=== PATIENT | male | born 1990 | race Caucasian/White ===

== ENCOUNTER → 2019-02-20 | Outpatient (CLI) | payer OTHER ==
--- NOTE | 2019-02-21 14:20 | ECHO ---
DATE OF PROCEDURE: 02/20/2019 DATE OF : 1990 AGE: 28 GENDER: Male HEIGHT: 74 inches WEIGHT: 132 pounds BODY SURFACE AREA: 1.82 m2 OUTPATIENT REFERRING PHYSICIAN: Dr. Magali Denis INDICATION: Murmur. MEASUREMENTS: 2-D Measurements: RV: 3.0 cm LV: 4.5 cm Septum: 0.8 cm Posterior wall: 0.8 cm Aortic root: 3.3 cm LA: 2.6 cm LVEF: 65% Doppler Measurements: AV: 0.93 m/s LVOT: 0.92 m/s LVOT diameter: 2.2 cm MV: E: 88, A: 42, EA ratio: 2 Early mitral deceleration time: 246 ms E prime: 10.6, A prime: 7, E/E prime ratio: 8.1 PV: 0.8 m/s Pulmonary artery acceleration time: 148 ms RVSP: 17 mmHg IVC: 1.8 cm COMMENTS: Normal sinus rhythm without intraventricular conduction disturbance. M-mode and two-dimensional echocardiography was performed with pulsed, continuous wave, color flow and tissue Doppler studies. Normal left ventricular size, wall thickness and wall motion. Normal left atrial size and Doppler assessment of LV diastolic function. Normal estimated mean left atrial pressure. Normal right heart chamber sizes and motion and estimated pulmonary arterial pressure. Normal IVC size and collapse against an elevated central venous pressure. Normal appearing and functioning valvular structures. No apparent intracardiac shunt. No apparent intracardiac mass or pericardial effusion. MTDD
== END ==
LOC: M CARPUL 08:09
DX: R01.1 Cardiac murmur, unspecified (principal)

== ENCOUNTER → 2019-07-27 | Outpatient (CLI) | payer MEDICAID, OTHER ==
--- NOTE | 2019-07-27 15:25 | REP ---
bilateral hips: AP and frog-leg views of both hips are performed. There is no acute fracture or dislocation. There is mild acetabular spurring. A somewhat linear calcification is seen superior to the right femoral neck probably tendinous in nature. Left hip joint appears normal. No other significant findings are seen. IMPRESSION: No evidence of fracture. There is mild right acetabular spurring and mild tendinous calcification is noted superior to the right femoral neck. Left hip joint is unremarkable. Electronically Signed by Shaka Sterling MD 07/29/2019 09:52 A
--- NOTE | 2019-07-27 15:27 | REP ---
BILATERAL KNEE SERIES: Five views of each knee performed. No acute fracture or dislocation is seen. Joint spaces are unremarkable in appearance. I do not see a significant joint effusion on either side. IMPRESSION: Negative Bilateral knee series. Electronically Signed by Shaka Sterling MD 07/29/2019 09:52 A
== END ==
LOC: M RAD 09:41
PROVIDERS: ATTEND Family Medicine
DX: M25.751 Osteophyte, right hip (principal)

== ENCOUNTER → 2019-08-26 | Outpatient (REF) | payer OTHER, MEDICAID | LOC: M LAB REF 17:29 | PROVIDERS: ATTEND Surgery | DX: D23.5 Other benign neoplasm of skin of trunk (principal) ==

== ENCOUNTER → 2019-09-04 | Outpatient (REF) | payer OTHER, MEDICAID | LOC: M SMT 13:29 | PROVIDERS: ATTEND Urology | DX: Z30.2 Encounter for sterilization (principal) ==

== ENCOUNTER → 2019-09-30 | Outpatient (REF) | payer OTHER, MEDICAID | LOC: M LAB REF 14:53 | PROVIDERS: ATTEND Surgery | DX: D22.5 Melanocytic nevi of trunk (principal) ==

== ENCOUNTER → 2019-10-26 | Outpatient (CLI) | payer MEDICAID ==
[2019-10-26 11:37] LABS: BASO % 0.2 % (0.0-1.0); EOS # 0.1 10^3/uL (0.0-0.5); EOS % 0.5 % (0.0-3.0); HEMATOCRIT 47.8 % (42.0-52.0); HEMOGLOBIN 15.9 g/dl (13.5-17.5); LYMPH # 1.6 10^3/uL (1.5-5.0); LYMPH % 16.4 % (24.0-44.0); MEAN CORPUSCULAR HEMOGLOBIN 30.9 pg (27.0-33.0); MEAN CORPUSCULAR HGB CONC 33.3 g/dl (32.0-36.5); MONO # 0.6 10^3/uL (0.0-0.8); MONO % 5.7 % (0.0-5.0); NEUTROPHILS # 7.5 10^3/uL (1.5-8.5); NEUTROPHILS % 76.8 % (36.0-66.0); PLATELET COUNT, AUTOMATED 202 10^3/uL (150-450); RED BLOOD COUNT 5.14 10^6/uL (4.30-6.10); WHITE BLOOD COUNT 9.7 10^3/uL (4.0-10.0)
[2019-10-26 12:07] LABS: BLOOD UREA NITROGEN 15 MG/DL (7-18); CALCIUM LEVEL 8.9 MG/DL (8.5-10.1); CARBON DIOXIDE LEVEL 28 MEQ/L (21-32); CHLORIDE LEVEL 109 MEQ/L (98-107); CREATININE FOR GFR 1.15 MG/DL (0.70-1.30); GLOMERULAR FILTRATION RATE > 60.0 (>60); GLUCOSE, FASTING 70 MG/DL (70-100); POTASSIUM SERUM 4.4 MEQ/L (3.5-5.1); SODIUM LEVEL 140 MEQ/L (136-145)
== END ==
LOC: M LAB 10:45
PROVIDERS: ATTEND Orthopaedic Surgery
DX: Z01.818 Encounter for other preprocedural examination (principal); M24.151 Other articular cartilage disorders, right hip; M25.559 Pain in unspecified hip

== ENCOUNTER → 2019-11-09 | Outpatient (REF) | payer MEDICAID ==
[2019-11-09 13:25] LABS: SEMEN APPEARANCE OPAQUE (OPAQUE); SEMEN VISCOSITY LIQUID (LIQUID); WBC CONCENTRATION <=1 M/ml (<=1 M/ml)
== END ==
LOC: M SMT 11:54
PROVIDERS: ATTEND Urology
DX: Z98.52 Vasectomy status (principal)

== ENCOUNTER 2024-04-28 20:30 | Emergency (ER) | payer OTHER ==
[~2024-04-28] VITALS: Ht 190.5 cm; Wt 56.7 kg
[~2024-04-28 20:30] MED LIST: LEVO50TA5 PO
[2024-04-28] MEDS ORDERED: NORV5TAB PO (20:45)
[2024-04-28 20:59] LABS: BASO % 0.4 % (0.0-1.0); EOS # 0.1 10^3/uL (0.0-0.5); EOS % 0.7 % (0.0-3.0); HEMATOCRIT 43.2 % (42.0-52.0); HEMOGLOBIN 14.8 g/dl (13.5-17.5); LYMPH # 2.5 10^3/uL (1.5-5.0); LYMPH % 23.5 % (24.0-44.0); MEAN CORPUSCULAR HEMOGLOBIN 31.4 pg (27.0-33.0); MEAN CORPUSCULAR HGB CONC 34.3 g/dl (32.0-36.5); MEAN CORPUSCULAR VOLUME 91.7 fl (80.0-96.0); MONO # 0.9 10^3/uL (0.0-0.8); MONO % 8.8 % (2.0-8.0); NEUTROPHILS # 7.1 10^3/uL (1.5-8.5); NEUTROPHILS % 66.3 % (36.0-66.0); PLATELET COUNT, AUTOMATED 244 10^3/uL (150-450); RED BLOOD COUNT 4.71 10^6/uL (4.30-6.10); WHITE BLOOD COUNT 10.7 10^3/uL (4.0-10.0)
[2024-04-28 21:35] LABS: CK-MB VALUE MASS 1.3 NG/ML (<3.6)
[2024-04-28 21:37] LABS: ALBUMIN 4.5 G/DL (3.2-5.2); ALKALINE PHOSPHATASE 83 U/L (46-116); ALT/SGPT 35 U/L (7.0-40); AST/SGOT 23 U/L (<34); BILIRUBIN,TOTAL 0.5 MG/DL (0.3-1.2); BLOOD UREA NITROGEN 15 MG/DL (9-23); CALCIUM LEVEL 9.9 MG/DL (8.5-10.1); CARBON DIOXIDE LEVEL 30 MMOL/L (20-31); CHLORIDE LEVEL 106 MMOL/L (98-107); CREATININE FOR GFR 1.38 MG/DL (0.70-1.30); GLOMERULAR FILTRATION RATE > 60.0 (>60); GLUCOSE, FASTING 91 MG/DL (60-100); POTASSIUM SERUM 3.9 MMOL/L (3.5-5.1); SODIUM LEVEL 142 MMOL/L (136-145); TOTAL PROTEIN 6.9 G/DL (5.7-8.2)
[2024-04-28 21:44] LABS: CPK CREATINE PHOSPHOKINASE 187 U/L (46-171); MB/CK RELATIVE INDEX 0.69 (< OR =4)
[2024-04-28] MEDS ORDERED: ISOVUE-370 76% 100ML VIAL As Ordered ONE (21:44)
[2024-04-28] MEDS: KETOROLAC 30 MG/ML 1ML VIAL IV ONE (23:00)
[2024-04-28 23:31] LABS: MB/CK RELATIVE INDEX 0.59 (< OR =4)
[2024-04-28 23:45] VITALS: BP 128/84; TEMP 98.6; O2SAT 98
== END 2024-04-29 00:40 | disposition home or self-care (01) ==
LOC: M ED 20:30
DX: R07.9 Chest pain, unspecified (principal); D18.03 Hemangioma of intra-abdominal structures; J98.4 Other disorders of lung; I10 Essential (primary) hypertension; F12.10 Cannabis abuse, uncomplicated; Z79.899 Other long term (current) drug therapy
CPT/HCPCS: 71045; 71275; 80053; 82550; 82553; 84484; 85025; 93005; 93041; 94760; 96374; 99285; J1885; Q9967